=== PATIENT | male | born 1985 | race African-American/Black ===

== ENCOUNTER 2018-02-11 07:57 | Emergency (ER) | payer SELFPAY ==
[2018-02-11] MEDS ORDERED: Lidocaine 1% PF 5 ML VIAL ONE (08:42)
[2018-02-11] MEDS ORDERED: Azithromycin 250 MG TAB ONE (08:42)
[2018-02-11] MEDS ORDERED: cefTRIAXone\\ROCEPHIN 250 MG VIAL ONE (08:42)
== END 2018-02-11 09:08 | disposition home or self-care (01) ==
LOC: ERS 07:57
DX: Z20.2 Contact with and (suspected) exposure to infections with a predominantly sexual mode of transmission (principal); F17.210 Nicotine dependence, cigarettes, uncomplicated
CPT/HCPCS: 96372; J0696; J2001